=== PATIENT | male | born 1955 | race Native Hawaiian/Other Pacific Islander ===

== ENCOUNTER 2020-08-06 18:50 | Observation (INO) | payer OTHER, MEDICARE ==
[~2020-08-06] VITALS: Ht 193 cm; Wt 153.9 kg
[2020-08-06] VITALS (7 sets, daily range): BP systolic 110–144; BP diastolic 62–91; TEMP 97.7–98.1; Ht 193 cm; Wt 153.9 kg
[2020-08-06 19:18] LABS: PLATELET COUNT 246 K/uL (142-355)
[2020-08-06 19:28] LABS: POTASSIUM 3.4 mmol/L (3.6-5.2); SODIUM 139 mmol/L (136-145)
[2020-08-06 19:59] LABS: PARTIAL THROMBOPLASTIN TIME 22.3 SECONDS (24.5-33.6)
[2020-08-06] MEDS ORDERED: LISI20TA11 PO (23:15)
[2020-08-06] MEDS ORDERED: AMILORIDE5 MG PO (23:15)
[2020-08-06] MEDS ORDERED: VITAMIN C1000 MG PO (23:38)
[2020-08-07 04:00] VITALS: BP 138/70; TEMP 97.8
[2020-08-07 05:10] LABS: PLATELET COUNT 211 K/uL (142-355)
[2020-08-07 08:00] VITALS: BP 152/76; TEMP 97.7
[2020-08-07 12:00] VITALS: BP 162/75; TEMP 97.6
[2020-08-07] MEDS ORDERED: APIX1TAB PO (14:32)
== END 2020-08-07 14:30 | disposition home or self-care (01) ==
LOC: ED 18:50 → MED/SURG 22:00
PROVIDERS: Hospitalist; ATTEND Internal Medicine Endocrinology, Diabetes & Metabolism
DX: I48.91 Unspecified atrial fibrillation (principal); R41.82 Altered mental status, unspecified; I10 Essential (primary) hypertension; R47.81 Slurred speech; E11.9 Type 2 diabetes mellitus without complications; E78.00 Pure hypercholesterolemia, unspecified; F10.129 Alcohol abuse with intoxication, unspecified; Y90.7 Blood alcohol level of 200-239 mg/100 ml
CPT/HCPCS: 36415; 80053; 80307; 80320; 81000; 82550; 82948; 83880; 84443; 84484; 85027; 85610; 85730; 87635; 93005; 96360; 96365; 96366; 99220; 99284; G0378; J3411; J3475; J3490; U0003